=== PATIENT | male | born 1950 | race Asian ===

== ENCOUNTER 2017-05-05 10:06 | Emergency (ER) | payer OTHER ==
[~2017-05-05] VITALS: Ht 177.8 cm; Wt 58.1 kg
[2017-05-05 11:03] LABS: PLATELET COUNT 287 K/uL (142-355)
[2017-05-05 11:08] LABS: POTASSIUM 3.8 mmol/L (3.6-5.2)
[2017-05-05 13:16] VITALS: BP 144/74; TEMP 97.5
== END 2017-05-05 13:17 | disposition home or self-care (01) ==
LOC: ED 10:06
PROVIDERS: Emergency Medicine
DX: J43.2 Centrilobular emphysema (principal); Z72.0 Tobacco use; F10.10 Alcohol abuse, uncomplicated
CPT/HCPCS: 80053; 82550; 84484; 85027; 93005; 99283

== ENCOUNTER 2018-12-18 13:10 | Emergency (ER) | payer OTHER ==
[~2018-12-18] VITALS: Ht 177.8 cm; Wt 45.4 kg
[2018-12-18 13:14] VITALS: TEMP 97.2
[2018-12-18 13:33] LABS: PLATELET COUNT 242 K/uL (142-355)
[2018-12-18 13:38] LABS: POTASSIUM 4.1 mmol/L (3.6-5.2)
[2018-12-18 13:50] LABS: PARTIAL THROMBOPLASTIN TIME 24.3 SECONDS (24.5-33.6)
[2018-12-18 15:26] VITALS: BP 139/93
== END 2018-12-18 16:05 | disposition short-term general hospital (02) ==
LOC: ED 13:13
PROVIDERS: Family Medicine
PROC: 0T9B70Z Drainage of Bladder with Drainage Device, Via Natural or Artificial Opening (ICD-10-PCS; principal; 2018-12-18)
DX: I63.411 Cerebral infarction due to embolism of right middle cerebral artery (principal); G46.0 Middle cerebral artery syndrome; G81.94 Hemiplegia, unspecified affecting left nondominant side; F17.210 Nicotine dependence, cigarettes, uncomplicated
CPT/HCPCS: 51702; 80053; 80307; 80320; 81000; 82550; 84484; 85027; 85610; 85730; 93005; 96361; 96365; 96375; 99285; J2997

== ENCOUNTER 2019-02-21 12:02 | Outpatient (CLI) | payer OTHER | END 2019-02-21 19:14 | disposition home or self-care (01) | LOC: RAD 12:02 | DX: M54.12 Radiculopathy, cervical region (principal) ==

== ENCOUNTER 2019-03-19 12:56 | Outpatient (CLI) | payer OTHER | END 2019-03-19 20:12 | disposition home or self-care (01) | LOC: MRI 12:56 | DX: M47.812 Spondylosis without myelopathy or radiculopathy, cervical region (principal) ==

== ENCOUNTER 2019-06-27 20:18 | Emergency (ER) | payer OTHER ==
[~2019-06-27] VITALS: Ht 177.8 cm; Wt 54.9 kg
[2019-06-27 21:55] VITALS: BP 111/69; TEMP 98.1
== END 2019-06-27 21:55 | disposition home or self-care (01) ==
LOC: ED 20:18
DX: L02.416 Cutaneous abscess of left lower limb (principal)
CPT/HCPCS: 99282

== ENCOUNTER 2020-10-01 15:34 | Outpatient (CLI) | payer OTHER | END 2020-10-01 23:59 | disposition home or self-care (01) | LOC: RAD 15:34 | PROVIDERS: ATTEND Nurse Practitioner Family | DX: J44.9 Chronic obstructive pulmonary disease, unspecified (principal) ==

== ENCOUNTER 2020-10-30 08:02 | Outpatient (CLI) | payer OTHER | END 2020-10-30 22:34 | disposition home or self-care (01) | LOC: CT 08:02 | PROVIDERS: ATTEND Nurse Practitioner Family | DX: F17.210 Nicotine dependence, cigarettes, uncomplicated (principal) ==

== ENCOUNTER 2020-11-05 12:01 | Observation (INO) | payer OTHER ==
[~2020-11-05] VITALS: Ht 177.8 cm; Wt 48.8 kg
[2020-11-05 14:28] LABS: PLATELET COUNT 236 K/uL (142-355)
[2020-11-05 19:06] VITALS: BP 126/81; TEMP 97.5; Ht 177.8 cm; Wt 48.8 kg
[2020-11-05 20:00] VITALS: BP 88/54; TEMP 98.3
[2020-11-05] MEDS ORDERED: CYPROHEPTADINE H4 MG PO (20:15)
[2020-11-05] MEDS ORDERED: LISI5TAB10 PO (20:16)
[2020-11-05] MEDS ORDERED: LIPITOR80 MG PO (20:17)
[2020-11-05] MEDS ORDERED: CARV6.25 PO (20:18)
[2020-11-05] MEDS ORDERED: ALBU90AE13 INH (20:18)
--- NOTE | 2020-11-05 20:50 | NUR ---
PT AWAKE, ALERT,ORIENTED X4. PT DENIES PAIN AT THIS TIME. IV FLUID NS @80 ML/HR INFUSING WITHOUT DIFFICULTY. NO DISTRESS NOTED.
[2020-11-06] VITALS: BP 91/56; TEMP 97.7
[2020-11-06 04:00] VITALS: BP 84/51; TEMP 98.1
--- NOTE | 2020-11-06 04:06 | NUR ---
PT SLEEPING. IV FLUID INFUSING WITHOUT PROBLEM. PT RECEIVING RESPIRATORY TREATMENTS. NO VOICED COMPLAINTS
[2020-11-06 08:00] VITALS: BP 97/57; TEMP 97.6
--- NOTE | 2020-11-06 10:15 | NUR ---
11/06/2020 0950 PT AWAKE ALERT AMBULATED TO RESTROOM WITHOUT DIFFICULTY NAD NOTED.CALL LIGHT WITHIN REACH.CC
[2020-11-06 12:00] VITALS: BP 78/45; TEMP 97.7
--- NOTE | 2020-11-06 14:39 | NUR ---
11/06/20 B/P 87/50. LYING IN BED NAD NOTED.CALL LIGHT WITHIN REACH.CC
--- NOTE | 2020-11-06 16:30 | NUR ---
11/06/207 DISCHARGED TO HOME WITH BROTHER INSTRUCTIONS GIVEN AND SIGNED.SL REMOVED TO RT FOREARM APPLIED 2X2 SECURED WITH TAPE.CC
== END 2020-11-06 16:21 | disposition home or self-care (01) ==
LOC: MED/SURG 12:01
PROVIDERS: ADMIT Family Medicine; ATTEND Family Medicine
DX: R62.7 Adult failure to thrive (principal); E86.0 Dehydration; R91.8 Other nonspecific abnormal finding of lung field; F19.20 Other psychoactive substance dependence, uncomplicated
CPT/HCPCS: 80053; 80307; 81000; 82550; 83880; 84484; 85027; 87040; 87635; 93005; 94640; 94664; 94760; 96360; 96361; 99220; G0378; G0379; U0003

== ENCOUNTER 2021-01-25 14:51 | Outpatient (CLI) | payer OTHER ==
[~2021-01-25 14:51] MED LIST: ALBU90AE13 INH; CARV6.25 PO; CYPROHEPTADINE H4 MG PO; LIPITOR80 MG PO; LISI5TAB10 PO
== END 2021-01-25 19:14 | disposition home or self-care (01) ==
LOC: CT 14:51
PROVIDERS: ATTEND Internal Medicine Sleep Medicine
DX: R91.8 Other nonspecific abnormal finding of lung field (principal)

== ENCOUNTER 2021-06-09 14:46 | Outpatient (CLI) | payer OTHER | END 2021-06-09 19:41 | disposition home or self-care (01) | LOC: US 14:46 | PROVIDERS: ATTEND Nurse Practitioner Family | DX: I73.9 Peripheral vascular disease, unspecified (principal) ==

== ENCOUNTER 2021-06-16 12:58 | Outpatient (CLI) | payer OTHER | END 2021-06-16 19:03 | disposition home or self-care (01) | LOC: RESP 12:58 | PROVIDERS: ATTEND Nurse Practitioner Family | DX: I10 Essential (primary) hypertension (principal) ==

== ENCOUNTER 2021-06-24 08:23 | Outpatient (CLI) | payer OTHER ==
[~2021-06-24] VITALS: Ht 180.3 cm; Wt 54.4 kg
== END 2021-06-24 19:56 | disposition home or self-care (01) ==
LOC: NM 08:23
PROVIDERS: ATTEND Nurse Practitioner Family
DX: I10 Essential (primary) hypertension (principal); Z79.899 Other long term (current) drug therapy
CPT/HCPCS: A9500; J2785

== ENCOUNTER 2022-01-10 15:43 | Observation (INO) | payer OTHER ==
[~2022-01-10] VITALS: Ht 177.8 cm; Wt 50.4 kg
--- NOTE | 2022-01-10 15:58 | NUR ---
PATIENT ADMITTED TO SERVICES DIRECT ADMIT ORIENTED TO ROOM AND CALL LIGHT SYSTEM.VISTIOR PRESENT IN ROOM.CC
[2022-01-10 16:46] LABS: PLATELET COUNT 204 K/uL (142-355)
[2022-01-10 17:02] LABS: POTASSIUM 4.8 mmol/L (3.6-5.2)
--- NOTE | 2022-01-10 17:19 | NUR ---
FAX AND SCANNED PATIENT'S MED REC FORM TO PHARM D AND PHARMACY AT 17:17
[2022-01-10 17:21] VITALS: BP 121/90; TEMP 97.6; Ht 177.8 cm; Wt 50.4 kg
--- NOTE | 2022-01-10 18:15 | NUR ---
CHARGE NURSE SPOKE WITH AT 18:10 ABOUT PATIENT'S RECENT LABS. NEW ORDERS RECEIVED WERE TO ORDER A 1X DOSE OF 20MG IVP LASIX FOR ELEVATED BNP OF 1080. MISTAKEN ENTRY FOR PO 20MG LASIX, D/C ORDER, AND CREATED A NEW ORDER. CHARGE NURSE AWARE.
--- NOTE | 2022-01-10 19:11 | NUR ---
19:08 - COLLECTED NASAL FLU SWAB 19:10 - DELIVERED TO LAB
[2022-01-10 20:00] VITALS: BP 102/67; TEMP 98.4
[2022-01-10] MEDS ORDERED: STIOLTO RESPIMA1 AER INH (20:01)
[2022-01-10] MEDS ORDERED: ALBUTEROL108 MCG/AC INH (20:05)
[2022-01-10] MEDS ORDERED: ELIQUIS5 MG PO (20:11)
--- NOTE | 2022-01-10 20:52 | NUR ---
REC'D PT LYING IN BED WITH EYES CLOSED. PT'S VS WNL. DENIES CHEST PAIN OR SOB. TELEMETRY SHOW NORMAL SINUS RYTHMN. NO S/SX OF DISTRESS NOTED. CALL LITH WITHIN REACH.
[2022-01-11] VITALS: BP 105/66; TEMP 98.3
--- NOTE | 2022-01-11 02:40 | NUR ---
PT LYING IN BED EYES CLOSED. PT DENIES CHEST PAIN. TROPONIN LEVEL INCREASED FRON 80.30 TO 87.O. TEXTED INFO TO DR. NATH. CURRENT TELEMETRY SHOWS PAC'S AND PVC'S. NO S/SX OF DISTRESS NTED PT. STATED HE FELT FINE.
[2022-01-11 04:00] VITALS: BP 93/54; TEMP 98
--- NOTE | 2022-01-11 07:35 | NUR ---
PATIENT ALERT TALKING SITTING UP IN BED EATING BREAKFAST NO C/O CHESTPAIN OF OR DISCOMFORT.CALL LIGHT WITHIN REACH.CC
--- NOTE | 2022-01-11 07:53 | NUR ---
DAUGHTER CALLED TO NURSING STATION UPDATED ON PATIENT CARE,EXPLAINED TO HER WE ARE WAITING ON SOME LABS THIS MORNING WILL CALL HER [facility] COMES IN WITH UPDATE.TOLD HER HER DAD IS DOING GOOD THIS MORNING NO C/O CHESTPAIN THIS AM OR NO PAIN DURING THE NIGHT.CC
[2022-01-11 08:00] VITALS: BP 93/63; TEMP 97.9
[2022-01-11 08:07] LABS: PLATELET COUNT 212 K/uL (142-355)
--- NOTE | 2022-01-11 09:30 | NUR ---
HERE TO FLOOR REVIEWED LABS NEW ORDER FOR BNP TO BE REPEATED THIS AM UPDATED ON PATIENT THIS AM.CC
[2022-01-11] MEDS ORDERED: LIPITOR80 MG PO (10:55)
[2022-01-11] MEDS ORDERED: VITAMIN D5000 UNI1 PO (10:56)
[2022-01-11] MEDS ORDERED: ELIQUIS5 MG PO (10:57)
[2022-01-11] MEDS ORDERED: LISI5TAB10 PO (10:59)
--- NOTE | 2022-01-11 11:44 | NUR ---
PATIENT AWAKE WATCHING T.V. NO C/O PAIN OR DISCOMFORT.CALL LIGHT WITHIN REACH.CC
--- NOTE | 2022-01-11 11:56 | NUR ---
SITTING UP HIGH VALDOVINOS'S EATING LUNCH MEDICATION GIVEN TOLERATED WELL.CALL LIGHT WITHIN REACH.CC
[2022-01-11 12:07] VITALS: BP 107/63; TEMP 97.6
--- NOTE | 2022-01-11 13:28 | NUR ---
PATIENT LYING IN BED TALKING WITH DAUGHTER AT BEDSIDE NO C/O PAIN AT THIS TIME.DISCUSSED PLAN OF CARE WITH PATIENT AND DAUGHTER EXPLAINED TO HER WILL POSSIBLY DISCHARGE HIM THIS AFTERNOON AND SEND HIM HOME ON LASIX 20MG PO DAILY.ALSO FOLLOW UP WITH ON JAN 180 AM.TOLD HER I WILL CALL HER WITH ANY FURTHER INFORMATION.CC
--- NOTE | 2022-01-11 15:55 | NUR ---
AWAKE ALERT LYING IN BED NO C/O CHESTPAIN OR DISCOMFORT RESP EVEN NONLABORED.CALL LIGHT WITHIN REACH.CC
[2022-01-11 16:00] VITALS: BP 92/61; TEMP 98.3
--- NOTE | 2022-01-11 16:27 | NUR ---
SALINE LOCK REMOVED APPLIED 2X2 SECURED WITH TAPE,ALSO TELE REMOVED CLEANED AND RETURNED TO NURSING STATION. DAUGHTER BABATUNDE NOTIFIED OF [place] BEING DISCHARGED HOME WILL FOLLOW UP WITH ON Jan AT 11.30 AM IN [facility] OFFICE.ALSO LASIX 20MG PO CALLED IN TO [facility] IN [facility].PATIENT ASSISTED TO GET DRESSED WAITNG ON DAUGHTER TO PICK HIM UP.CC
--- NOTE | 2022-01-11 17:02 | NUR ---
DISCHARGE INSTRUCTIONS GIVEN AND SIGNED ALONG WITH APPT CARD FOR APPT TIME.ALSO RX FOR LASIX 20MG PO CALLED INTO [facility] IN [place] TOTAL 30 TABLETS.CC
--- NOTE | 2022-01-11 17:25 | NUR ---
PATIENT DISCHARGED HOME TOOK OUT VIA [employer]EL[employer]IR ACCOMPAINED BY DAUGHTER TO HOME.CC
== END 2022-01-11 17:25 | disposition home or self-care (01) ==
LOC: MED/SURG 15:43
PROVIDERS: ADMIT Family Medicine; ATTEND Family Medicine
DX: R07.89 Other chest pain (principal); F19.10 Other psychoactive substance abuse, uncomplicated; I10 Essential (primary) hypertension; I50.9 Heart failure, unspecified; Z11.52 Encounter for screening for COVID-19
CPT/HCPCS: 36415; 80053; 82550; 83735; 83880; 84100; 84484; 85027; 85610; 85730; 87502; 87635; 93005; 96372; 96374; 99220; G0378; G0379; J1650; J1940; U0003

== ENCOUNTER 2022-01-15 19:47 | Emergency (ER) | payer OTHER ==
[~2022-01-15] VITALS: Ht 177.8 cm; Wt 49.9 kg
[~2022-01-15 19:47] MED LIST changes: +ALBUTEROL108 MCG/AC INH; +ELIQUIS5 MG PO; +STIOLTO RESPIMA1 AER INH; +VITAMIN D5000 UNI1 PO
[2022-01-15 20:40] LABS: PLATELET COUNT 221 K/uL (142-355)
[2022-01-15 20:49] LABS: POTASSIUM 4.1 mmol/L (3.6-5.2)
[2022-01-15 22:03] VITALS: BP 105/74; TEMP 98.2
== END 2022-01-15 22:03 | disposition home or self-care (01) ==
LOC: ED 19:47
PROVIDERS: Family Medicine
DX: I50.9 Heart failure, unspecified (principal); J44.9 Chronic obstructive pulmonary disease, unspecified; N18.9 Chronic kidney disease, unspecified; F17.210 Nicotine dependence, cigarettes, uncomplicated; Z79.899 Other long term (current) drug therapy
CPT/HCPCS: 36415; 80053; 80307; 82550; 83880; 84484; 85027; 85610; 85730; 93005; 99284

== ENCOUNTER 2022-01-17 17:29 | Outpatient (CLI) | payer OTHER ==
[2022-01-17 18:23] LABS: POTASSIUM 4.9 mmol/L (3.6-5.2)
== END 2022-01-17 21:01 | disposition home or self-care (01) ==
LOC: LAB 17:29
PROVIDERS: ATTEND Nurse Practitioner Family
DX: I50.20 Unspecified systolic (congestive) heart failure (principal)
CPT/HCPCS: 80053; 83880; 85027

== ENCOUNTER 2022-03-02 13:24 | Emergency (ER) | payer OTHER ==
[~2022-03-02] VITALS: Ht 177.8 cm; Wt 50.8 kg
[2022-03-02 13:30] VITALS: TEMP 98
[2022-03-02 14:18] LABS: PLATELET COUNT 236 K/uL (142-355)
[2022-03-02 15:06] LABS: POTASSIUM 3.9 mmol/L (3.6-5.2)
[2022-03-02 16:15] VITALS: BP 112/71
== END 2022-03-02 16:58 | disposition short-term general hospital (02) ==
LOC: ED 13:24
PROVIDERS: Emergency Medicine Emergency Medical Services
DX: I21.4 Non-ST elevation (NSTEMI) myocardial infarction (principal); J44.1 Chronic obstructive pulmonary disease with (acute) exacerbation; U07.1 COVID-19; I10 Essential (primary) hypertension; F17.210 Nicotine dependence, cigarettes, uncomplicated; Z79.01 Long term (current) use of anticoagulants; Z51.81 Encounter for therapeutic drug level monitoring
CPT/HCPCS: 36600; 80053; 80307; 81002; 82805; 83735; 83880; 84484; 85027; 85379; 87040; 87502; 87635; 93005; 94664; 96360; 96365; 96372; 96375; 99284; J0696; J1650; J2930; U0003

== ENCOUNTER 2022-03-14 09:47 | Outpatient (CLI) | payer OTHER ==
[2022-03-14 10:17] LABS: PLATELET COUNT 227 K/uL (142-355)
== END 2022-03-14 20:21 | disposition home or self-care (01) ==
LOC: RAD 09:47
PROVIDERS: ATTEND Nurse Practitioner Family
DX: J12.89 Other viral pneumonia (principal)
CPT/HCPCS: 36415; 36600; 82805; 85027

== ENCOUNTER 2022-06-03 16:54 | Observation (INO) | payer OTHER ==
[~2022-06-03] VITALS: Ht 177.8 cm; Wt 51.8 kg
[2022-06-03] VITALS (7 sets, daily range): BP systolic 11–125; BP diastolic 58–87; TEMP 97.3–98.2; Ht 177.8 cm; Wt 51.8 kg
[2022-06-03 17:15] LABS: PLATELET COUNT 236 K/uL (142-355)
[2022-06-03 17:22] LABS: POTASSIUM 4.1 mmol/L (3.6-5.2)
[2022-06-04 03:32] VITALS: BP 99/67; TEMP 98.7
[2022-06-04 08:00] VITALS: BP 92/60; TEMP 98.3
[2022-06-04 12:42] VITALS: BP 87/52; TEMP 98.4
[2022-06-04 16:00] VITALS: BP 84/51; TEMP 97.4
[2022-06-04 19:40] VITALS: BP 83/50; TEMP 97.6
[2022-06-04 23:38] VITALS: BP 96/69; TEMP 97.6
[2022-06-05 03:54] VITALS: BP 100/64; TEMP 98
[2022-06-05 05:28] LABS: PLATELET COUNT 207 K/uL (142-355)
[2022-06-05 05:48] LABS: POTASSIUM 3.6 mmol/L (3.6-5.2)
[2022-06-05 08:00] VITALS: BP 160/100; BP 92/61; TEMP 97.7; TEMP 98.1
[2022-06-05] MEDS ORDERED: FUROSEMIDE20 MG PO (08:17)
== END 2022-06-05 10:55 | disposition home or self-care (01) ==
LOC: ED 16:54 → MED/SURG 19:34
PROVIDERS: Family Medicine; ADMIT Internal Medicine; ATTEND Internal Medicine
DX: I11.0 Hypertensive heart disease with heart failure (principal); J44.9 Chronic obstructive pulmonary disease, unspecified; I50.23 Acute on chronic systolic (congestive) heart failure; R07.89 Other chest pain; R06.02 Shortness of breath; J81.1 Chronic pulmonary edema; R09.02 Hypoxemia; I95.89 Other hypotension; Z79.01 Long term (current) use of anticoagulants; F10.10 Alcohol abuse, uncomplicated; F14.10 Cocaine abuse, uncomplicated; F12.10 Cannabis abuse, uncomplicated; Z51.81 Encounter for therapeutic drug level monitoring
CPT/HCPCS: 36415; 80053; 80307; 80320; 81002; 82550; 83735; 83880; 84100; 84484; 85027; 87635; 93005; 96374; 99220; 99284; G0378; J1940; U0003

== ENCOUNTER 2022-12-15 12:02 | Observation (INO) | payer OTHER ==
[~2022-12-15] VITALS: Ht 177.8 cm; Wt 53.3 kg
[2022-12-15] VITALS (7 sets, daily range): BP systolic 95–104; BP diastolic 55–69; TEMP 97.3–98.1; Ht 177.8 cm; Wt 53.3 kg
[~2022-12-15 12:02] MED LIST changes: +FUROSEMIDE20 MG PO
[2022-12-15 12:28] LABS: PLATELET COUNT 216 K/uL (142-355)
[2022-12-15 12:59] LABS: POTASSIUM 4.6 mmol/L (3.6-5.2)
[2022-12-15] MEDS ORDERED: FURO20TA67 PO (16:04)
[2022-12-15] MEDS ORDERED: JARDIANCE10 MG PO (16:05)
[2022-12-15] MEDS ORDERED: CYPROHEPTADINE H4 MG PO (16:06)
[2022-12-15] MEDS ORDERED: FLONASE AL50 MCG/ACT NAS (16:07)
[2022-12-16] VITALS: BP 95/63; TEMP 98
[2022-12-16 04:10] VITALS: BP 97/70; TEMP 97.8
[2022-12-16 05:43] LABS: PLATELET COUNT 181 K/uL (142-355)
[2022-12-16 06:38] LABS: POTASSIUM 4.1 mmol/L (3.6-5.2)
[2022-12-16 08:00] VITALS: BP 94/66; TEMP 97.5
[2022-12-16 12:00] VITALS: BP 96/61; TEMP 97.8
[2022-12-16 16:00] VITALS: BP 98/61; TEMP 98.1
[2022-12-16 20:00] VITALS: BP 84/53; TEMP 98
[2022-12-17] VITALS: BP 98/66; TEMP 97.8
[2022-12-17 04:00] VITALS: BP 97/69; TEMP 98.2
[2022-12-17 05:07] LABS: PLATELET COUNT 175 K/uL (142-355)
[2022-12-17 05:24] LABS: POTASSIUM 3.8 mmol/L (3.6-5.2)
[2022-12-17 08:00] VITALS: BP 100/72; TEMP 98.2
[2022-12-17 12:00] VITALS: BP 94/65; TEMP 98.3
[2022-12-17 19:57] VITALS: BP 112/79; TEMP 97.9
== END 2022-12-17 16:33 | disposition home or self-care (01) ==
LOC: ED 12:02 → MED/SURG 13:31
PROVIDERS: ADMIT Nurse Practitioner Family; ATTEND Family Medicine
DX: I11.0 Hypertensive heart disease with heart failure (principal); I50.20 Unspecified systolic (congestive) heart failure; R06.02 Shortness of breath; F15.10 Other stimulant abuse, uncomplicated; F14.10 Cocaine abuse, uncomplicated; F12.10 Cannabis abuse, uncomplicated; F10.10 Alcohol abuse, uncomplicated; I95.89 Other hypotension; I47.29 Other ventricular tachycardia; D64.89 Other specified anemias; Z72.0 Tobacco use
CPT/HCPCS: 36415; 80048; 80053; 83735; 83880; 84484; 85027; 93005; 96374; 99221; 99284; G0378; J1940

== ENCOUNTER 2023-01-11 09:14 | Outpatient (CLI) | payer OTHER ==
[~2023-01-11 09:14] MED LIST changes: +FLONASE AL50 MCG/ACT NAS; +FURO20TA67 PO; +JARDIANCE10 MG PO
== END 2023-01-11 19:09 | disposition home or self-care (01) ==
LOC: RESP 09:14
PROVIDERS: ATTEND Specialist
DX: I42.8 Other cardiomyopathies (principal)